=== PATIENT | female | born 1960 | race Caucasian/White ===

== ENCOUNTER → 2017-08-02 | Outpatient (CLI) | payer OTHER ==
[~2017-08-02] MED LIST: ALBU8.5H8 INH; ESTR0.5T PO; FLUT1BLS INH; HYDR-3237 PO; LEVO50TA5 PO; LISI2.5T PO; METO25TA35 PO; TACR30OI5 TD; TRIA1TAB3 PO
[2017-08-02 12:36] LABS: MICROSCOPIC NOT IND
[2017-08-02 12:37] LABS: INTERNATIONAL NORMALIZED RATIO 0.97 (0.93-1.1)
[2017-08-02 12:42] LABS: CULTURE INDICATED? NO
[2017-08-02 12:53] LABS: HEMOGLOBIN A1C 5.7 % (4.2-6.3)
== END | disposition home or self-care (01) ==
LOC: STAR 11:04
PROVIDERS: ATTEND Orthopaedic Surgery
DX: Z01.818 Encounter for other preprocedural examination (principal); M17.11 Unilateral primary osteoarthritis, right knee
CPT/HCPCS: 36415; 81003; 83036; 85610; 85730; 87081; 87806; G0475

== ENCOUNTER 2017-08-05 13:29 | Emergency (ER) | payer OTHER ==
[~2017-08-05] VITALS: Ht 170.2 cm; Wt 104.5 kg
[2017-08-05] MEDS ORDERED: SODIUM CHLORIDE 0.9% 1,000ML IVBOLUS ONE (14:00)
[2017-08-05] MEDS ORDERED: SODIUM CHLORIDE FLUSH 10ML SYR IVF ONE (14:00)
[2017-08-05 14:34] LABS: BASOPHILS # (AUTO) 0.02 x10^3/uL (0-0.1); BASOPHILS % (AUTO) 0 % (0-1); EOSINOPHILS # (AUTO) 0.06 x10^3/uL (0-0.4); EOSINOPHILS % (AUTO) 0 % (1-7); LYMPHOCYTES # (AUTO) 1.31 x10^3/uL (1-3.4); LYMPHOCYTES % (AUTO) 8 % (22-44); MD NO; MEAN CORPUSCULAR HEMOGLOBIN 31.7 pg (27.0-34.8); MEAN CORPUSCULAR HGB CONC 33.9 g/dL (32.4-35.8); MEAN CORPUSCULAR VOLUME 93.3 fL (80-100); MEAN PLATELET VOLUME 7.9 fL (7.4-10.4); MONOCYTES # (AUTO) 0.89 x10^3/uL (0.2-0.8); MONOCYTES % (AUTO) 5 % (2-9); NEUTROPHILS # (AUTO) 14.43 x10^3/uL (1.8-6.8); NEUTROPHILS % (AUTO) 86 % (42-75); PLATELET COUNT 373 x10^3/uL (130-400); RED BLOOD COUNT 4.56 x10^6/uL (3.82-5.3); RED CELL DISTRIBUTION WIDTH 13.1 % (9.6-15.2)
[2017-08-05 14:48] LABS: ALBUMIN 3.4 g/dL (3.4-5.0); ANION GAP 7 mmol/L (5-15); CALCIUM 8.8 mg/dL (8.5-10.1); CHLORIDE 99 mmol/L (98-107); CREATININE 1.24 mg/dL (0.55-1.02)
[2017-08-05 14:52] LABS: TROPONIN I < 0.015 ng/mL (0.000-0.045)
[2017-08-05] MEDS ORDERED: AZITHROMYCIN 500 MG TABLET PO ONE (16:00)
[2017-08-05] MEDS ORDERED: CEFTRIAXONE PMX 1GM/50ML 50 ML IV ONE (16:00)
[2017-08-05] MEDS ORDERED: AZITHROMYCIN 250 MG TABLET ONE (16:17)
[2017-08-05] MEDS ORDERED: CEFTRIAXONE PMX 1GM/50ML 50 ML ONE (16:17)
[2017-08-05 17:45] VITALS: BP 124/82
== END 2017-08-05 17:57 | disposition home or self-care (01) ==
LOC: ED 17:18
DX: J15.9 Unspecified bacterial pneumonia (principal); I10 Essential (primary) hypertension; J45.909 Unspecified asthma, uncomplicated
CPT/HCPCS: 36415; 80048; 82040; 83605; 84145; 84484; 85025; 87040; 93005; 96365; 99285; J0696; J7030

== ENCOUNTER → 2017-12-13 | Outpatient (CLI) | payer OTHER ==
[~2017-12-13] MED LIST changes: +ASPI-621 PO; +CELE200C PO; +DOCU-131 PO; +LEVO75TA5 PO; +ONDA4TAB10 PO; +OXYC5TAB3 PO; +TRAM50TA2 PO
== END | disposition home or self-care (01) ==
LOC: CFH 10:00
PROVIDERS: ATTEND Internal Medicine Cardiovascular Disease
DX: I08.0 Rheumatic disorders of both mitral and aortic valves (principal); I11.9 Hypertensive heart disease without heart failure
CPT/HCPCS: 93306

== ENCOUNTER → 2017-12-13 | Outpatient (CLI) | payer OTHER ==
[2017-12-13 13:45] LABS: MICROSCOPIC NOT IND
[2017-12-13 13:47] LABS: CULTURE INDICATED? NO
[2017-12-13 14:21] LABS: BASOPHILS # (AUTO) 0.06 x10^3/uL (0-0.1); BASOPHILS % (AUTO) 1 % (0-1); EOSINOPHILS # (AUTO) 0.05 x10^3/uL (0-0.4); EOSINOPHILS % (AUTO) 1 % (1-7); LYMPHOCYTES # (AUTO) 2.25 x10^3/uL (1-3.4); LYMPHOCYTES % (AUTO) 31 % (22-44); MD NO; MEAN CORPUSCULAR HEMOGLOBIN 32.3 pg (27.0-34.8); MEAN CORPUSCULAR HGB CONC 34.1 g/dL (32.4-35.8); MEAN CORPUSCULAR VOLUME 94.8 fL (80-100); MONOCYTES # (AUTO) 0.38 x10^3/uL (0.2-0.8); MONOCYTES % (AUTO) 5 % (2-9); NEUTROPHILS # (AUTO) 4.61 x10^3/uL (1.8-6.8); NEUTROPHILS % (AUTO) 63 % (42-75); PLATELET COUNT 402 x10^3/uL (130-400); RED BLOOD COUNT 4.61 x10^6/uL (3.82-5.3); RED CELL DISTRIBUTION WIDTH 13.1 % (9.6-15.2)
[2017-12-13 14:29] LABS: ANION GAP 7 mmol/L (5-15); CALCIUM 9.5 mg/dL (8.5-10.1); CHLORIDE 103 mmol/L (98-107); CREATININE 0.92 mg/dL (0.55-1.02)
[2017-12-13 14:30] LABS: ALANINE AMINOTRANSFERASE 28 U/L (12-78); ALBUMIN 3.4 g/dL (3.4-5.0)
[2017-12-13 14:32] LABS: ALKALINE PHOSPHATASE 83 U/L (45-117); BILIRUBIN,TOTAL 0.4 mg/dL (0.2-1.0); TOTAL PROTEIN 7.5 g/dL (6.4-8.2)
[2017-12-13 14:33] LABS: PROTHROMBIN TIME 10.3 Seconds (9.6-11.5)
[2017-12-13 14:46] LABS: HEMOGLOBIN A1C 5.8 % (4.2-6.3)
== END | disposition home or self-care (01) ==
LOC: STAR 12:58
PROVIDERS: ATTEND Orthopaedic Surgery
DX: Z01.818 Encounter for other preprocedural examination (principal); M17.0 Bilateral primary osteoarthritis of knee
CPT/HCPCS: 36415; 80053; 81003; 83036; 85025; 85610; 85730; 87081; 87806; 93005; G0475

== ENCOUNTER → 2017-12-15 | Outpatient (CLI) | payer OTHER ==
[~2017-12-15] MED LIST changes: +REGADENOSON 0.4 MG/5 ML SYRINGE ONE
== END | disposition home or self-care (01) ==
LOC: CFH 07:45
PROVIDERS: ATTEND Internal Medicine Cardiovascular Disease
DX: Z01.810 Encounter for preprocedural cardiovascular examination (principal); R07.9 Chest pain, unspecified
CPT/HCPCS: 78452; 93017; A9502; J2785

== ENCOUNTER 2017-12-19 07:46 | Observation (INO) | payer OTHER ==
[~2017-12-19] VITALS: Ht 167.6 cm; Wt 114.5 kg
[~2017-12-19 07:46] MED LIST changes: -ASPI-621 PO; -CELE200C PO; -DOCU-131 PO; -ONDA4TAB10 PO; -OXYC5TAB3 PO; -REGADENOSON 0.4 MG/5 ML SYRINGE ONE; -TRAM50TA2 PO
[2017-12-19] MEDS ORDERED: MIDAZOLAM 1 MG/ML, 2ML ONE (07:51)
[2017-12-19] MEDS ORDERED: FENTANYL PF 250 MCG/5ML ONE (07:52)
[2017-12-19] MEDS ORDERED: LACTATED RINGERS 1,000 ML IV SCH (08:17)
[2017-12-19] MEDS ORDERED: ROPIvacaine/PF 0.2%, 20 ML ONE (08:18)
[2017-12-19] MEDS ORDERED: KETOROLAC 60 MG/2 ML ONE (08:18)
[2017-12-19] MEDS ORDERED: TRANEXAMIC ACID 100 MG/ML, 10ML ONE ×4 (08:18)
[2017-12-19] MEDS ORDERED: EPINEPHRINE 1 MG/ML, 1ML ONE (08:19)
[2017-12-19] MEDS ORDERED: ACETAMINOPHEN 500 MG TABLET PO ONE (08:30)
[2017-12-19] MEDS ORDERED: LIDOCAINE-MPF 1%, 2ML INFIL ONE (08:30)
[2017-12-19] MEDS ORDERED: GABAPENTIN 300 MG CAPSULE PO ONE (08:30)
[2017-12-19] MEDS ORDERED: VANCOMYCIN PER PHARMACY MC STA (08:35)
[2017-12-19] MEDS ORDERED: VANCOMYCIN 2,000 MG in SODIUM CHLORIDE 0.9% 500 ML IV ONE (09:00)
[2017-12-19] MEDS ORDERED: PROMETHAZINE 12.5 MG SUPP PR PRN ×2 (09:30→11:30)
[2017-12-19] MEDS ORDERED: PROMETHAZINE 25 MG/ML, 1ML IM PRN (09:30)
[2017-12-19] MEDS ORDERED: ONDANSETRON 4 MG TABLET PO PRN (09:30)
[2017-12-19] MEDS ORDERED: MAGNESIUM HYDROXIDE 8%, 30ML UDC PO PRN (09:30)
[2017-12-19] MEDS ORDERED: DIPHENHYDRAMINE 25 MG CAPSULE PO PRN (09:30)
[2017-12-19] MEDS ORDERED: SENNA/DOCUSATE TABLET PO PRN (09:30)
[2017-12-19] MEDS ORDERED: ALUMINUM/MAG/SIMETHICONE 30 ML UDC PO PRN (09:30)
[2017-12-19] MEDS ORDERED: TRANEXAMIC ACID 1,000 MG in SODIUM CHLORIDE 0.9% 100 ML IVPB ONE (09:30)
[2017-12-19] MEDS ORDERED: BISACODYL 10 MG SUPP PR PRN (09:30)
[2017-12-19] MEDS ORDERED: ONDANSETRON 2MG/ML, 2ML IV PRN ×2 (09:30→11:30)
[2017-12-19] MEDS ORDERED: HYDROmorphone 2 MG/ML, 1ML ONE (11:26)
[2017-12-19] MEDS ORDERED: hydrALAzine 20 MG/ML, 1ML IV PRN (11:30)
[2017-12-19] MEDS ORDERED: OXYcodone 5 MG/5 ML ORAL.SOL UDC PO PRN (11:30)
[2017-12-19] MEDS ORDERED: FENTANYL PF 100 MCG/2ML IV PRN (11:30)
[2017-12-19] MEDS ORDERED: HYDROmorphone 1 MG/ML, 1ML IV PRN (11:30)
[2017-12-19] MEDS: HYDROmorphone 1 MG/ML, 1ML IV PRN ×4 (11:30→11:52)
[2017-12-19] MEDS ORDERED: ONDANSETRON ODT 8 MG PO PRN (11:30)
[2017-12-19] MEDS ORDERED: LABETALOL 5MG/ML, 20ML IV PRN (11:30)
[2017-12-19] MEDS ORDERED: FENTANYL PF 100 MCG/2ML ONE (11:42)
[2017-12-19] MEDS: OXYcodone IR 5MG TABLET PO PRN ×3 (12:32→21:21)
[2017-12-19] MEDS ORDERED: ALBUTEROL SULFATE 2.5 MG/3 ML HHN PRN (13:30)
[2017-12-19 13:47] VITALS: BP 146/82
[2017-12-19] MEDS: D5%-0.45NACL+KCL 20MEQ 1,000 ML IV SCH (17:17)
[2017-12-19] MEDS: CEFAZOLIN PMX 1GM/50ML 50 ML IVPB SCH (17:17)
[2017-12-19] MEDS: ASPIRIN 81 MG TABLET EC PO SCH (17:17)
[2017-12-19 19:06] VITALS: BP 135/81
[2017-12-19] MEDS ORDERED: VANCOMYCIN PMX 1GM/200ML 200 ML IVPB ONE (21:00)
[2017-12-19] MEDS: DOCUSATE 100 MG CAPSULE PO SCH (21:21)
[2017-12-19] MEDS: ACETAMINOPHEN 650 MG/20.3 ML UDC PO PRN (21:21)
[2017-12-20 00:26] VITALS: BP 108/67
[2017-12-20] MEDS: CEFAZOLIN PMX 1GM/50ML 50 ML IVPB SCH (01:18)
[2017-12-20] MEDS: D5%-0.45NACL+KCL 20MEQ 1,000 ML IV SCH (03:00)
[2017-12-20 03:53] VITALS: BP 124/73
[2017-12-20] MEDS: OXYcodone IR 5MG TABLET PO PRN ×2 (04:04→08:18)
[2017-12-20] MEDS: ACETAMINOPHEN 650 MG/20.3 ML UDC PO PRN (04:04)
[2017-12-20] MEDS ORDERED: DEXAMETHASONE 4 MG/ML, 1ML IVPush SCH (06:00)
[2017-12-20] MEDS: ASPIRIN 81 MG TABLET EC PO SCH (06:28)
[2017-12-20 06:43] VITALS: BP 114/64
[2017-12-20] MEDS: DOCUSATE 100 MG CAPSULE PO SCH (08:19)
[2017-12-20] MEDS ORDERED: FLUTICASONE/VILANTEROL 200-25MCG/INH INH SCH (09:00)
[2017-12-20] MEDS ORDERED: TRIAMTERENE-HCTZ 37.5/25 MG TABLET PO SCH (09:00)
[2017-12-20] MEDS ORDERED: LISINOPRIL 5 MG TABLET PO SCH (09:00)
[2017-12-20] MEDS ORDERED: TAMSULOSIN 0.4 MG CAP.ER.24H PO SCH (09:00)
[2017-12-20] MEDS ORDERED: METOPROLOL TARTRATE 25 MG TABLET PO SCH (09:00)
[2017-12-20] MEDS ORDERED: KETOROLAC 30 MG/1 ML IV SCH (09:30)
[2017-12-20] MEDS ORDERED: ASPI-621 PO (10:23)
[2017-12-20] MEDS ORDERED: ONDA4TAB10 PO (10:23)
[2017-12-20] MEDS ORDERED: DOCU-131 PO (10:24)
[2017-12-20] MEDS ORDERED: CELE200C PO (10:24)
[2017-12-20] MEDS ORDERED: TRAM50TA2 PO (10:25)
[2017-12-20] MEDS ORDERED: OXYC5TAB3 PO (10:26)
[2017-12-21] MEDS ORDERED: LEVOTHYROXINE 75 MCG TABLET PO SCH (06:00)
== END 2017-12-20 11:30 | disposition home or self-care (01) ==
LOC: OUT 07:46 → ORIP 09:11 → 4NOR 12:14
PROVIDERS: ADMIT Orthopaedic Surgery; ATTEND Orthopaedic Surgery
DX: M17.11 Unilateral primary osteoarthritis, right knee (principal); M71.20 Synovial cyst of popliteal space [Baker], unspecified knee; I11.9 Hypertensive heart disease without heart failure
CPT/HCPCS: 27447; 36415; 73560; 85014; 85018; 96365; 96366; 96367; 96375; 97116; 97161; 97165; C1713; C1776; G0378; G8978; G8979; G8980; J0171; J0690; J1100; J1170; J1885; J2250; J2405; J2795; J3010; J3370; J3480; J7040

== ENCOUNTER 2020-01-22 14:00 | Inpatient (IN) | payer OTHER ==
[~2020-01-22] VITALS: Ht 165.1 cm; Wt 122.3 kg
[~2020-01-22 14:00] MED LIST changes: +ASPI81TA45 PO; +CELE200C PO; +DOCU-131 PO; +ONDA4TAB10 PO; +OXYC5TAB3 PO; +TRAM50TA2 PO
--- NOTE | 2020-01-22 14:34 | NUR ---
PA IN ROOM. PULSE OX PLACED ON EARLOBE BC WEARING A LOT OF NAILPOLISH, O2 TURNED OFF TO GET ACCURATE RA SAT.
[2020-01-22 15:15] LABS: BASOPHILS % (AUTO) 1 % (0-1); EOSINOPHILS % (AUTO) 1 % (1-7); LYMPHOCYTES % (AUTO) 10 % (22-44); MEAN CORPUSCULAR HEMOGLOBIN 31.1 pg (27.0-34.8); MEAN CORPUSCULAR HGB CONC 33.5 g/dL (32.4-35.8); MEAN PLATELET VOLUME 7.7 fL (7.4-10.4); MONOCYTES % (AUTO) 10 % (2-9); NEUTROPHILS % (AUTO) 78 % (42-75); PLATELET COUNT 417 x10^3/uL (130-400); RED BLOOD COUNT 4.34 x10^6/uL (3.82-5.3); RED CELL DISTRIBUTION WIDTH 14.2 % (9.6-15.2)
[2020-01-22 15:17] LABS: MD NO
--- NOTE | 2020-01-22 15:19 | NUR ---
EKG DONE XR/LABS PENDING, NSR/ST 100S. CALL QUIROZ IN REACH.
[2020-01-22 15:22] LABS: ALANINE AMINOTRANSFERASE 22 U/L (12-78); ALBUMIN 2.4 g/dL (3.4-5.0); ANION GAP 9 mmol/L (5-15); CALCIUM 8.6 mg/dL (8.5-10.1); CHLORIDE 106 mmol/L (98-107)
[2020-01-22 15:27] LABS: ALKALINE PHOSPHATASE 113 U/L (45-117); BILIRUBIN,TOTAL 0.5 mg/dL (0.2-1.0); CREATININE 1.35 mg/dL (0.55-1.02); TOTAL PROTEIN 6.8 g/dL (6.4-8.2); TROPONIN I < 0.015 ng/mL (0.000-0.045)
--- NOTE | 2020-01-22 16:28 | NUR ---
pt room air sat 86-90% on RA. notified provider. pt tbadm. pt agrees. pt moved to hospital bed. as
[2020-01-22] MEDS ORDERED: AZITHROMYCIN 500 MG in SODIUM CHLORIDE 0.9% 250 ML IVPB ONE (16:30)
[2020-01-22] MEDS ORDERED: CEFTRIAXONE PMX 1GM/50ML 50 ML IVPB ONE (16:30)
[2020-01-22] MEDS ORDERED: CEFTRIAXONE PMX 1GM/50ML 50 ML ONE (16:38)
[2020-01-22] MEDS ORDERED: SODIUM CHLORIDE FLUSH 10ML SYR IVF PRN ×2 (17:00→18:00)
[2020-01-22 17:10] LABS: C-REACTIVE PROTEIN, QUANT 7.89 mg/dL (0.02-0.49); D-DIMER (DIC) 1.46 ug/mlFEU (0.00-0.52); PROTIME 10.7 Seconds (9.6-11.5)
--- NOTE | 2020-01-22 17:12 | NUR ---
admitting md was in room, piv, labs, bc x2, abx per apr, ice chips, call aguilar. as
[2020-01-22] MEDS ORDERED: ALBUTEROL/IPRATROPIUM 2.5MG/0.5MG, 3 ML NPPB PRN (17:30)
[2020-01-22] MEDS ORDERED: ONDANSETRON 2MG/ML, 2ML IVPush PRN (17:30)
[2020-01-22] MEDS ORDERED: ONDANSETRON ODT 4 MG PO PRN (17:30)
[2020-01-22] MEDS ORDERED: ACETAMINOPHEN 325 MG TABLET PO PRN (17:30)
[2020-01-22] MEDS ORDERED: ENOXAPARIN 40 MG/0.4 ML SQ SCH (17:30)
[2020-01-22] MEDS ORDERED: DOCUSATE 100 MG CAPSULE PO PRN (17:30)
[2020-01-22] MEDS ORDERED: ASCORBIC ACID 500 MG TABLET ONE (17:56)
[2020-01-22] MEDS ORDERED: ENOXAPARIN 40 MG/0.4 ML ONE (17:56)
[2020-01-22] MEDS: ASCORBIC ACID 500 MG TABLET PO SCH (18:03)
[2020-01-22] MEDS: LACTATED RINGERS 1,000 ML IV SCH (18:03)
--- NOTE | 2020-01-22 18:06 | NUR ---
ATE DINNER, MEDS PER APR, O2 TO 1 LNC. NO NEEDS.
--- NOTE | 2020-01-22 19:06 | NUR ---
report to nik tiwari. as
[2020-01-22] MEDS ORDERED: ALBUTEROL-IPRATROPIUM MDI INH INH PRN (19:30)
[2020-01-22] MEDS: ALBUTEROL-IPRATROPIUM MDI INH INH SCH (20:00)
--- NOTE | 2020-01-22 21:47 | NUR ---
PT RESTING IN BED, PT A/O X4, PT AMBULATED TO BEDSIDE BATHROOM WITH STEADY GAIT. PT ON MONITOR WITH VSS. PT MEDICATED PER APR. PT DENIED ANY CURRENT WANTS OR NEEDS.
--- NOTE | 2020-01-23 01:11 | NUR ---
PT SLEEPING INBED, PT ON MONITOR WITH PT VSS , PT ON OS NC AT 2L
--- NOTE | 2020-01-23 04:02 | NUR ---
PT SLEEPING IN BED, PT ON MONITOR WITH PT VSS , PT ON OS NC AT 2L
[2020-01-23 05:13] LABS: BASOPHILS % (AUTO) 1 % (0-1); EOSINOPHILS % (AUTO) 3 % (1-7); LYMPHOCYTES % (AUTO) 15 % (22-44); MEAN CORPUSCULAR HGB CONC 33.1 g/dL (32.4-35.8); MONOCYTES % (AUTO) 12 % (2-9); NEUTROPHILS % (AUTO) 71 % (42-75); PLATELET COUNT 372 x10^3/uL (130-400); RED BLOOD COUNT 4.24 x10^6/uL (3.82-5.3); RED CELL DISTRIBUTION WIDTH 14.1 % (9.6-15.2)
[2020-01-23 05:14] LABS: MD NO
[2020-01-23 05:18] LABS: ANION GAP 6 mmol/L (5-15); CALCIUM 8.5 mg/dL (8.5-10.1); CHLORIDE 106 mmol/L (98-107); CREATININE 1.15 mg/dL (0.55-1.02)
[2020-01-23 05:19] LABS: ALANINE AMINOTRANSFERASE 20 U/L (12-78); ALBUMIN 2.2 g/dL (3.4-5.0)
[2020-01-23 05:24] LABS: ALKALINE PHOSPHATASE 101 U/L (45-117); BILIRUBIN,TOTAL 0.6 mg/dL (0.2-1.0); C-REACTIVE PROTEIN, QUANT 6.74 mg/dL (0.02-0.49); TOTAL PROTEIN 6.4 g/dL (6.4-8.2)
--- NOTE | 2020-01-23 05:59 | NUR ---
PT RESTING IN FLOOR BED, PT A/O X4, PT AMBULATED TO BATHROOM WITH STEADY GAIT. PT ON MONITOR WITH VSS. PT MEDICATED PER APR. PT DENIED ANY CURRENT WANTS OR NEEDS.
--- NOTE | 2020-01-23 06:53 | NUR ---
report to rafael
[2020-01-23] MEDS ORDERED: DEXAMETHASONE 4 MG/ML, 1ML ONE (07:23)
[2020-01-23] MEDS ORDERED: THIAMINE 100MG TABLET ONE (07:23)
[2020-01-23] MEDS ORDERED: ASCORBIC ACID 500 MG TABLET ONE (07:24)
[2020-01-23] MEDS ORDERED: CHOLECALCIFEROL 5,000u TAB ONE (07:24)
[2020-01-23] MEDS ORDERED: ZINC SULFATE 220 MG CAPSULE ONE (07:25)
[2020-01-23] MEDS ORDERED: METOPROLOL TARTRATE 25 MG TAB ONE (07:25)
[2020-01-23] MEDS: CHOLECALCIFEROL 5,000u TAB PO SCH (07:49)
[2020-01-23] MEDS: METOPROLOL TARTRATE 25 MG TAB PO SCH (07:49)
[2020-01-23] MEDS: ASCORBIC ACID 500 MG TABLET PO SCH ×2 (07:49→16:19)
[2020-01-23] MEDS: LACTATED RINGERS 1,000 ML IV SCH (07:49)
[2020-01-23] MEDS: DEXAMETHASONE 4 MG/ML, 1ML IVPush SCH (07:49)
[2020-01-23] MEDS: THIAMINE 100MG TABLET PO SCH (07:50)
[2020-01-23] MEDS: ZINC SULFATE 220 MG CAPSULE PO SCH (07:50)
--- NOTE | 2020-01-23 07:52 | NUR ---
PT MEDICATED PER APR, MED SLIP SENT TO PHARM FOR INHALERS, MEAL TRAY ORDERED, PT WITH VSS. NAD NOTED
[2020-01-23] MEDS: ALBUTEROL-IPRATROPIUM MDI INH INH SCH ×4 (08:41→20:13)
[2020-01-23] MEDS: FLUTICASONE/VILANTEROL 200-25MCG/INH INH SCH (08:41)
[2020-01-23] MEDS: ENOXAPARIN 30 MG/0.3 ML SQ SCH ×2 (13:06→22:09)
--- NOTE | 2020-01-23 14:38 | NUR ---
CALLED TO GIVE RPT. RN BUSY WILL CALL BACK.
[2020-01-23 16:23] VITALS: BP 125/76
[2020-01-23 19:12] VITALS: BP 130/72
[2020-01-24 00:26] VITALS: BP 125/71
[2020-01-24 03:43] LABS: ALANINE AMINOTRANSFERASE 21 U/L (12-78); ALBUMIN 2.1 g/dL (3.4-5.0); ANION GAP 5 mmol/L (5-15); CHLORIDE 106 mmol/L (98-107); CREATININE 1.17 mg/dL (0.55-1.02)
[2020-01-24 03:46] LABS: BASOPHILS % (AUTO) 1 % (0-1); EOSINOPHILS % (AUTO) 0 % (1-7); LYMPHOCYTES % (AUTO) 13 % (22-44); MEAN CORPUSCULAR HEMOGLOBIN 31.3 pg (27.0-34.8); MEAN CORPUSCULAR HGB CONC 33.1 g/dL (32.4-35.8); MONOCYTES % (AUTO) 10 % (2-9); NEUTROPHILS % (AUTO) 76 % (42-75); PLATELET COUNT 392 x10^3/uL (130-400); RED BLOOD COUNT 3.86 x10^6/uL (3.82-5.3); RED CELL DISTRIBUTION WIDTH 14.2 % (9.6-15.2)
[2020-01-24 03:47] LABS: MD NO
[2020-01-24 04:09] LABS: ALKALINE PHOSPHATASE 96 U/L (45-117); BILIRUBIN,TOTAL 0.3 mg/dL (0.2-1.0); C-REACTIVE PROTEIN, QUANT 5.11 mg/dL (0.02-0.49); TOTAL PROTEIN 6.3 g/dL (6.4-8.2)
[2020-01-24] MEDS: ALBUTEROL-IPRATROPIUM MDI INH INH SCH ×4 (06:10→19:58)
[2020-01-24] MEDS ORDERED: MAGNESIUM SULFATE PMX 2GM/50ML 50 ML IV ONE (07:00)
[2020-01-24] MEDS ORDERED: MAGNESIUM SULFATE PMX 2GM/50ML 50 ML ONE (07:01)
[2020-01-24 07:39] VITALS: BP 126/76
[2020-01-24] MEDS: DEXAMETHASONE 4 MG/ML, 1ML IVPush SCH (08:17)
[2020-01-24] MEDS: ASCORBIC ACID 500 MG TABLET PO SCH ×2 (08:18→16:22)
[2020-01-24] MEDS: ZINC SULFATE 220 MG CAPSULE PO SCH (08:18)
[2020-01-24] MEDS: METOPROLOL TARTRATE 25 MG TAB PO SCH (08:18)
[2020-01-24] MEDS: CHOLECALCIFEROL 5,000u TAB PO SCH (08:18)
[2020-01-24] MEDS: FLUTICASONE/VILANTEROL 200-25MCG/INH INH SCH (08:19)
[2020-01-24] MEDS: THIAMINE 100MG TABLET PO SCH (08:22)
[2020-01-24] MEDS ORDERED: LEVOTHYROXINE 75 MCG TABLET PO SCH (09:00)
[2020-01-24] MEDS: ENOXAPARIN 30 MG/0.3 ML SQ SCH ×2 (11:04→23:21)
[2020-01-24 14:50] VITALS: BP 138/74
[2020-01-24 19:07] VITALS: BP 127/74
[2020-01-25 00:37] VITALS: BP 114/80
[2020-01-25 04:13] LABS: BASOPHILS % (AUTO) 0 % (0-1); EOSINOPHILS % (AUTO) 0 % (1-7); LYMPHOCYTES % (AUTO) 13 % (22-44); MEAN CORPUSCULAR HEMOGLOBIN 30.9 pg (27.0-34.8); MEAN CORPUSCULAR HGB CONC 32.8 g/dL (32.4-35.8); MONOCYTES % (AUTO) 9 % (2-9); NEUTROPHILS % (AUTO) 78 % (42-75); PLATELET COUNT 379 x10^3/uL (130-400); RED BLOOD COUNT 3.78 x10^6/uL (3.82-5.3); RED CELL DISTRIBUTION WIDTH 14.1 % (9.6-15.2)
[2020-01-25 04:19] LABS: ANION GAP 9 mmol/L (5-15); CHLORIDE 107 mmol/L (98-107)
[2020-01-25 04:20] LABS: CREATININE 1.16 mg/dL (0.55-1.02)
[2020-01-25 04:31] LABS: MD NO
[2020-01-25] MEDS: ALBUTEROL-IPRATROPIUM MDI INH INH SCH ×3 (07:00→15:00)
[2020-01-25 07:27] VITALS: BP 130/67
[2020-01-25] MEDS: FLUTICASONE/VILANTEROL 200-25MCG/INH INH SCH (07:50)
[2020-01-25] MEDS: DEXAMETHASONE 4 MG/ML, 1ML IVPush SCH (07:51)
[2020-01-25] MEDS: ZINC SULFATE 220 MG CAPSULE PO SCH (07:51)
[2020-01-25] MEDS: METOPROLOL TARTRATE 25 MG TAB PO SCH (07:51)
[2020-01-25] MEDS: THIAMINE 100MG TABLET PO SCH (07:53)
[2020-01-25] MEDS: CHOLECALCIFEROL 5,000u TAB PO SCH (07:53)
[2020-01-25] MEDS: INSULIN LISPRO 100 UNITS/ML, PEN SQ-INSULIN SCH ×3 (07:53→16:00)
[2020-01-25] MEDS: ASCORBIC ACID 500 MG TABLET PO SCH (07:53)
[2020-01-25] MEDS: ENOXAPARIN 30 MG/0.3 ML SQ SCH (11:33)
[2020-01-25 12:48] VITALS: BP 130/79
== END 2020-01-25 16:32 | disposition home or self-care (01) | DRG 177 ==
LOC: ED 14:50 → EDIP 16:33 → 3N 01-23 15:43
PROVIDERS: ADMIT Internal Medicine Infectious Disease; ATTEND Family Medicine
DX: U07.1 COVID-19 (principal); J12.89 Other viral pneumonia; J96.01 Acute respiratory failure with hypoxia; J45.901 Unspecified asthma with (acute) exacerbation; N17.9 Acute kidney failure, unspecified; E03.9 Hypothyroidism, unspecified; I10 Essential (primary) hypertension; Z82.49 Family history of ischemic heart disease and other diseases of the circulatory system; Z83.3 Family history of diabetes mellitus
CPT/HCPCS: 36415; 71045; 80048; 80053; 82728; 82962; 83605; 83615; 83735; 83880; 84145; 84484; 85025; 85049; 85379; 85384; 85610; 85730; 86140; 87040; 93005; 96372; 96374; 96375; 99285; G0378; J0456; J0696; J1100; J1650; J1815; J3475; J7050; J7120

== ENCOUNTER → 2020-03-11 | Outpatient (CLI) | payer OTHER ==
[2020-03-11 12:12] LABS: MEAN CORPUSCULAR HEMOGLOBIN 31.9 pg (27.0-34.8); MEAN PLATELET VOLUME 7.4 fL (7.4-10.4); PLATELET COUNT 302 x10^3/uL (130-400); RED BLOOD COUNT 3.96 x10^6/uL (3.82-5.3); RED CELL DISTRIBUTION WIDTH 14.8 % (9.6-15.2)
[2020-03-11 13:36] LABS: CHLORIDE 105 mmol/L (98-107)
[2020-03-11 13:58] LABS: ALANINE AMINOTRANSFERASE 52 U/L (12-78); ALBUMIN 3.7 g/dL (3.4-5.0); ALKALINE PHOSPHATASE 85 U/L (45-117); ANION GAP 7 mmol/L (5-15); BILIRUBIN,TOTAL 0.8 mg/dL (0.2-1.0); CALCIUM 9.6 mg/dL (8.5-10.1); CHOL/HDL RATIO 2.5; CHOLESTEROL, TOTAL 143 mg/dL (140-239); CREATININE 1.28 mg/dL (0.55-1.02); HDL CHOL % 41 % (28-40); HDL CHOLESTEROL (DIRECT) 58 mg/dL (40-60); LDL CHOLESTEROL,CALCULATED 59 mg/dL (54-169); TOTAL PROTEIN 7.3 g/dL (6.4-8.2); TRIGLYCERIDES 132 mg/dL (50-200); VLDL CHOLESTEROL 26 mg/dL (0-25)
== END | disposition home or self-care (01) ==
LOC: CVU 11:50
PROVIDERS: ATTEND Internal Medicine Cardiovascular Disease
DX: I08.2 Rheumatic disorders of both aortic and tricuspid valves (principal); I10 Essential (primary) hypertension; D64.9 Anemia, unspecified; E78.5 Hyperlipidemia, unspecified; E03.9 Hypothyroidism, unspecified; R01.1 Cardiac murmur, unspecified; R94.31 Abnormal electrocardiogram [ECG] [EKG]
CPT/HCPCS: 36415; 80053; 80061; 84443; 85027; 93306; 93356

== ENCOUNTER → 2020-03-20 | Outpatient (CLI) | payer OTHER | END | disposition home or self-care (01) | LOC: CFH 09:21 | PROVIDERS: ATTEND Registered Nurse | DX: R91.8 Other nonspecific abnormal finding of lung field (principal) | CPT/HCPCS: 71250 ==

== ENCOUNTER → 2020-07-09 | Outpatient (CLI) | payer OTHER ==
[~2020-07-09] MED LIST changes: -OXYC5TAB3 PO; +OXYC5TAB98 PO
[2020-07-09 12:28] LABS: ALANINE AMINOTRANSFERASE 45 U/L (12-78); ALBUMIN 3.7 g/dL (3.4-5.0); ANION GAP 4 mmol/L (5-15); CALCIUM 9.7 mg/dL (8.5-10.1); CHLORIDE 108 mmol/L (98-107); CHOLESTEROL, TOTAL 127 mg/dL (140-239); CREATININE 1.09 mg/dL (0.55-1.02)
[2020-07-09 12:31] LABS: ALKALINE PHOSPHATASE 101 U/L (45-117); BILIRUBIN,TOTAL 0.6 mg/dL (0.2-1.0); CHOL/HDL RATIO 2.5; HDL CHOL % 40 % (28-40); HDL CHOLESTEROL (DIRECT) 51 mg/dL (40-60); LDL CHOLESTEROL,CALCULATED 51 mg/dL (54-169); TOTAL PROTEIN 7.8 g/dL (6.4-8.2); TRIGLYCERIDES 123 mg/dL (50-200); VLDL CHOLESTEROL 25 mg/dL (0-25)
== END | disposition home or self-care (01) ==
LOC: LAB 11:59
PROVIDERS: ATTEND Physician Assistant Medical
DX: E03.9 Hypothyroidism, unspecified (principal); E66.9 Obesity, unspecified; E78.5 Hyperlipidemia, unspecified; I10 Essential (primary) hypertension; I27.20 Pulmonary hypertension, unspecified; I86.8 Varicose veins of other specified sites; K76.0 Fatty (change of) liver, not elsewhere classified; M25.561 Pain in right knee; R01.1 Cardiac murmur, unspecified; M54.9 Dorsalgia, unspecified
CPT/HCPCS: 36415; 80053; 80061

== ENCOUNTER 2020-07-17 12:34 | Outpatient (CLI) | payer OTHER | END 2020-07-18 23:59 | disposition home or self-care (01) | LOC: CFH 12:34 | PROVIDERS: ATTEND Internal Medicine Cardiovascular Disease | DX: Z01.810 Encounter for preprocedural cardiovascular examination (principal); I10 Essential (primary) hypertension; R94.31 Abnormal electrocardiogram [ECG] [EKG] | CPT/HCPCS: 78452; 93017; A9502 ==